=== PATIENT | female | born 2005 | race Asian ===

== ENCOUNTER 2023-01-30 10:35 | Emergency (ER) | payer BC, SELFPAY ==
[2023-01-30 10:41] VITALS: BP 126/82; PULSE 98; RESP 18; TEMP 36.4; O2SAT 99; BMI 19.7
--- NOTE | 2023-01-30 10:47 | ED.GENADULT ---
HPI - General Adult General Date Seen: 01/30/23 Chief complaint: Epistaxis/Nosebleed Stated complaint: Nose Bleed Time Seen by Provider: 01/30/23 10:45 Source: patient Mode of arrival: ambulatory Limitations: no limitations History of Present Illness HPI narrative: Stormy is a 17-year-old female with no past medical history presents emergency department via private car with a nosebleed. Patient states she has a history of nose bleeds in the past, she has had cauterization, she has been seen by ENT as well. Patient denies any bleeding disorders. She denies any trauma. She was in the shower around 8:50 a.m. this morning, bleeding was coming out of her left nostril, and down her throat. No difficulty with breathing or swallowing, no nausea vomiting. She applied pressure and came to the emergency department. Patient denies any lightheadedness or dizziness. Patient was doing well prior to this morning. Related Data Home Medications Medication Instructions Recorded Confirmed No Known Home Medications 01/30/23 02/05/23 Allergies Allergy/AdvReac Type Severity Reaction Status Date / Time amoxicillin Allergy Verified 02/05/23 09:39 Review of Systems Status of ROS: Reports: 10 or more systems reviewed and unremarkable except as noted in History and below [facility] PFS Social History Smoking Status: Never smoker Do you use any of these nicotine containing products: None Second hand tobacco smoke exposure: No service: No Exam Narrative: Exam Narrative: General: No obvious distress, nontoxic in appearance HEENT: Oropharynx clear and moist, small blood clots in the post oropharyngeal area Nose: Active bleeding of the left naris Lungs: Clear to auscultation bilaterally Heart; normal sinus rhythm S1-S2 Abdomen: Soft nontender Neuro; awake and oriented x3 Const: Vital Signs, click to edit/add: Vital Signs - 24 hr 01/30/23 10:41 Temperature 97.5 F L Pulse Rate [Right Pulse Oximeter] 98 Respiratory Rate 18 Blood Pressure [Ri ght Upper Arm] 126/82 Pulse Oximetry 99 Oxygen Delivery Me thod Room Air Course Course ED Course: 11:00 AM: AIDET performed, no concerns for airway at this time, seems more anterior epistaxis, will apply Afrin to cotton ball/2 x 2 gauze for packing, nasal clamp applied. Will also obtain CBC, INR. Reevaluation(s) Time of Reevaluation #1: 12:17 Reevaluation #1: Epistaxis has resolved, patient doing well. CBC showed stable hemoglobin and normal INR. Plan to have her follow-up with ENT here in [place] with Dr. Zazueta. Call made to Dr. Zazueta he was updated. Reasons to return given. Vital Signs Vital signs: Initial Vital Signs Temperature 97.5 F L 01/30/23 10:41 Temperature Source Temporal Artery Scan 01/30/23 10:41 Pulse Rate 98 01/30/23 10:41 Respiratory Rate 18 01/30/23 10:41 Blood Pressure 126/82 01/30/23 10:41 Blood Pressure Mean 96 01/30/23 10:41 Blood Pressure Position Sitting 01/30/23 10:41 Pulse Oximetry 99 01/30/23 10:41 Oxygen Delivery Method Room Air 01/30/23 10:41 Vital Signs Temperature 97.5 F L 01/30/23 10:41 Pulse Rate 98 01/30/23 10:41 Respiratory Rate 18 01/30/23 10:41 Blood Pressure 126/82 01/30/23 10:41 Pulse Oximetry 99 01/30/23 10:41 Oxygen Delivery Method Room Air 01/30/23 10:41 Temperature 97.5 F L 01/30/23 10:41 Pulse Rate 98 01/30/23 10:41 Respiratory Rate 18 01/30/23 10:41 Blood Pressure 126/82 01/30/23 10:41 Pulse Oximetry 99 01/30/23 10:41 Oxygen Delivery Method Room Air 01/30/23 10:41 Medical Decision Making Lab Data Labs: Lab Results 01/30/23 Range/Units 12:04 WBC 6.18 (4.50-11.00) K/uL RBC 4.00 (4.00-5.20) m/uL Hgb 12.0 (12.0-16.0) gm/dL Hct 36.6 (33.0-51.0) % MCV 92 (80-100) fL MCH 30 (26-34) pg MCHC 33 (32-36) gm/dL RDW Coeff of Hamida 12.3 (11.5-15.5) % Plt Count 214 (140-440) K/uL Neut % (Auto) 75.5 H (42.0-72.0) % Lymph % (Auto) 18.3 L (20-44) % Dupage % (Auto) 5.8 (0.0-11.0) % Eos % (Auto) 0.2 (0.0-7.0) % Baso % (Auto) 0.2 (0.0-3.0) % Neut # (Auto) 4.70 (1.7-7.0) K/uL Lymph # (Auto) 1.10 (0.90-2.90) K/uL Dupage # (Auto) 0.40 (0.00-0.90) K/UL Eos # (Auto) 0.01 (0.00-0.50) K/uL Baso # (Auto) 0.01 (0.00-0.30) K/uL Abs Immat Gran (auto) 0.00 (0.00-0.30) K/uL Imm/Tot Granulo (auto) 0.0 % INR 1.02 (0.91-1.10) Discharge Plan Discharge Clinical Impression: Epistaxis Patient Disposition: Home, Self-Care Condition: Improved Instructions: Nosebleed (ED) Additional Instructions: Please follow up with Dr. Zazueta on 02/04/23 at [facility], 2:45pm. Prescriptions: No Action No Known Home Medications Follow Up/Referrals: Provider,Not a Local [Primary Care Provider] - Stand Alone Forms: MyHealth Info Instructions Procedures Epistaxis Control Nostril: Yes left Nose prepped with: Yes other (Afrin) Direct inspection: Yes anterior source identified Direct inspection method: Yes nasal speculum Epistaxis treatment: Yes other (Afrin spray, with 2x2 gauze, nasal clamp) Results of treatment: Yes bleeding controlled Estimated blood loss (if any): none Complications: Yes none Conclusion: patient tolerated procedure
--- OUTSIDE RECORDS SUMMARY | 2023-01-30 11:59 | XMS_ITS | Continuity of Care Document ---
Author Name Unknown Organization [facility] Address [address] [phone] Phone Care Team Providers Care Inside Trucker Name Role Phone Ruth Juarez MD Unavailable Unavailable Allergies, Adverse Reactions, Alerts Substance Reaction Status Criticality No Known Allergies Active No Inform ation Medications Medication Instructions Dosage Effective Dates (start - stop) Status Comments No Drug Therapy Prescribed Procedures Procedure Date COMPREHENSIVE EXAM REFRACTION COMPREHENSIVE EXAM REFRACTION COMPREHENSIVE EXAM REFRACTION COMPREHENSIVE EXAM REFRACTION COMPREHENSIVE EXAM REFRACTION EYE EXAM, NEW PATIENT REFRACTION Advance Directives Directive Yes / No Effective Date File Name No Information Encounters Encounter Description Practice Location Reason(s) For Visit Diagnoses Date Provider Providers Copied on Encounter [facility], [address] [place], [place], [facility], tel:[phone] [place] No Information 3 Ann Miranda. [facility], [address], [place], [facility], . tel:[phone] [facility], [address] [place], [place], [facility], tel:[phone] [place] Routine vision exam (chief complaint) Myopia, bilateralAnis ometropia 7 No Information [facility] [address] [facility] [address], [place], [address]. tel:[phone] [address] [place] [address], [address] [place] [address], [address], tel:[phone] [place] routine vision exam (chief complaint) Myopia, bilateral 6 No Information Referring Provider: Mariangel Huber [facility] [address] [facility] [address], [place], [address]. tel:[phone] [place] [address], [address] [place] [address], [address], tel:[phone] [place] routine exam (chief complaint) Unspecified disorder of refraction and accommodation 5 No Information Referring Provider: Mariangel Huber [facility] [address] [facility] [address] [place] [address], [address]. tel:[phone] [place] [address], [address] [place] [address], [facility], tel:[phone] [place] Refractive Error Unspecified 4 No Information Referring Provider: Rick Robison [facility] [address] [facility] [address], [place], [address]. tel:[phone] [place] [address], [address] [place] [address], [address], tel:[phone] [place] Refractive Error UnspecifiedRe fractive Error Unspecified 3 No Information Referring Provider: Rick Robison [facility] [address], [place], [address]. tel:[phone] [place] [address], [address] [place] [address], [address], tel:[phone] [place] No Information 0 No Information Referring Provider: Rick Robison [facility] [address] [facility] [address] [address] [address]. tel:[phone] Family History Family Member Type Diagnosis Age At Onset Problem (finding) Diabetes mellitus Payers Payer name Insurance type Covered constitution party ID Authorrica mo(s) [facility] [id number] Social History Type Description Quantity Date Captured Comments Sex Female Smoking Status No Information Chief Complaint And Reason For Visit No Information Reason For Referral Reason For Referral No Information History Of Present Illness Encounter Date Complaint History Of Prese nt Illness Routine vision exam The 11 year 4 month old female presents for evaluation of Routine vision exam in the right eye and left eye. It started about 9 months ago. It affects neither distance or near vision. The condition is stable. Pt only wears glasses at school, no vision complaints. routine vision exam The 10 year 7 month old female presents for evaluation of routine vision exam in the right eye and left eye. It affects neither distance or near vision. The condition is stable with glasses. Not interested in contacts. routine exam The 9 year 2 mo nth old female presents for evaluation of routine exam in the right eye and left eye. Patient states that she wears glasses at school only, vision is much better with them on. Did not bring glasses today. Functional Status Date Functional Assessmen t No Information Medications Administered Medication Instructions Dosage Effective Dates (start - stop) Status Comments No Drug Therapy Prescribed Instructions Date Instruction Additional Infor nishant Follow up - Return i n 1 year with Chet Bush MD for Complete Exam Related to Myopia, bilateral Impression/Plan - Re fractive error -discussed diagnosis in detail with patient's father. Glasses Rx given. Call or return immediately for decreased vision, pain, redness, light sensitivity.Return in 1 year with Chet Bush MD for Complete Exam Related to Myopia, bilateral Return in Return in 1 year with Chet Bush MD for Vision Exam. Related to Myopia, bilateral Follow up - Return i n Return in 1 year with Chet Bush MD for Vision Exam. Related to Myopia, bilateral Impression/Plan - Di scussed diagnosis in detail with patient and patient's father. New glasses Rx was given today.Return in Return in 1 year with Chet Bush MD for Vision Exam. Related to Myopia, bilateral Return in 1 year wit elaina Bush MD for Complete Exam. Related to Unspecified disorder of refraction and accommodation Follow up - Return i n 1 year with Chet Bush MD for Complete Exam. Related to Unspecified disorder of refraction and accommodation Impression/Plan - Re fractive error -discussed diagnosis in detail with patient's mother. Glasses Rx given. Call or return immediately for decreased vision, pain, redness, light sensitivity.Return in 1 year with Chet Bush MD for Complete Exam Related to Unspecified disorder of refraction and accommodation - Return in 1 year w uma Bush MD for Complete Exam. Related to Myopia, astigmatism Myopia, astigmatism OU Condition: worsening.-VA sc 20/20- OU open (dilated)-BCVA 20/20 OU - Discussed diagnosis in detail with patient.Glasses are optional at this time, Mrx given. Return in 1 year with Chet Bush MD for Complete Exam. Educational materials provided. Related to Myopia, astigmatism - Return in 1 year w uma Bush MD for Complete Exam. Related to Myopia, astigmatism Myopia, astigmatism OU Condition: worsening. - - Discussed diagnosis in detail with patient and mother.- New glasses Rx was given today, optional.Return in 1 year with Chet Bush MD for Complete Exam. Educational materials provided. Related to Myopia, astigmatism Assessments Type Assessment Date No Information Patient Care Teams Name Effective Dates (start - stop) Status Members No Information
--- OUTSIDE RECORDS SUMMARY | 2023-01-30 11:59 | XMS_ITS | Continuity of Care Document ---
Author Name Unknown Organization [facility] Address [address] [phone] Phone Care Team Providers Care Pharmacist In Charge Owner Name Role Phone Ruth Juarez MD Unavailable [...] Diagnoses Date Provider Providers Copied on Encounter [facility], [address] [place], [place], [facility], tel:[phone] [place] No Information 3 Ann Miranda. [facility], [address], [place], [facility], . tel:[phone] [facility], [address] [place], [place], [facility], tel:[phone] [place] Routine vision exam (chief complaint) Myopia, bilateralAnis ometropia 7 No Information Referring [facility]: [facility] [address] [facility] [address], [place], [address]. tel:[phone] [address] [place] [address], [address] [place] [address], [address], tel:[phone] [place] routine vision exam (chief complaint) Myopia, bilateral 6 No Information Referring Provider: Mariangel Huber [facility] [address] [facility] [address], [place], [address]. tel:[phone] [address] [place] [address], [address] [place] [address], [address], tel:[phone] [place] routine exam (chief complaint) Unspecified disorder of refraction and accommodation 5 No Information Referring Provider: Mariangel Huber [facility] [address] [facility] [address] [place] [address], [address]. tel:[phone] [phone] [place] [address], [address] [place] [address], [facility], tel:[phone] [place] Refractive Error Unspecified 4 No Information Referring Provider: Rick Robison [facility] [address] [facility] [address], [place], [address]. tel:[phone] [address] [place] [address], [address] [place] [address], [address], tel:[phone] [place] Refractive Error UnspecifiedRe fractive Error Unspecified 3 No Information Referring Provider: Rick Robison [facility] [address] [facility] [address], [place], [address]. tel:[phone] [place] [address], [address] [place] [address], [address], tel:[phone] [place] No Information 0 No Information Referring Provider: Rick Robison [facility] [address] [facility] [address] [address]. tel:[phone] Family History Family Member Type Diagnosis Age At Onset Problem (finding) Diabetes mellitus Payers Payer name Insurance type Covered republican ID Authorrica mo(s) [facility] [id number] Social History Type Description Quantity Date Captured [...]
[2023-01-30 12:14] LABS: Basophils Absolute Auto 0.01 K/uL (0.00-0.30); Basophils Percent Auto 0.2 % (0.0-3.0); Eosinophils Absolute Auto 0.01 K/uL (0.00-0.50); Eosinophils Percent Auto 0.2 % (0.0-7.0); Hematocrit 36.6 % (33.0-51.0); Lymphocytes Percent Auto 18.3 % (20-44); Mean Corpuscular HGB Conc 33 gm/dL (32-36); Mean Corpuscular Hemoglobin 30 pg (26-34); Mean Corpuscular Volume 92 fL (80-100); Monocytes Percent Auto 5.8 % (0.0-11.0); Neutrophils Percent Auto 75.5 % (42.0-72.0); Platelet Count* 214 K/uL (140-440); RDW Coefficient of Variation % 12.3 % (11.5-15.5); White Blood Count* 6.18 K/uL (4.50-11.00)
[2023-01-30 12:17] LABS: Slide Review Reflex No
[2023-01-30 12:31] LABS: INR 1.02 (0.91-1.10)
== END 2023-01-30 13:06 | disposition home or self-care (01) ==
PROVIDERS: Emergency Provider Student in an Organized Health Care Education/Training Program
DX: R04.0 Epistaxis (principal)
CPT/HCPCS: 36415; 85025; 85610; 99283; 99284

== ENCOUNTER 2023-02-13 14:32 | Outpatient (CLI) | payer BC, SELFPAY ==
--- OUTSIDE RECORDS SUMMARY | 2023-02-14 05:12 | XMS_ITS | Continuity of Care Document ---
Author Name Unknown Organization [facility] Address [address] [phone] Phone Care Team Providers Care Grid Casting Machine Operator Helper Name Role Phone Ruth Juarez MD Unavailable [...] Diagnoses Date Provider Providers Copied on Encounter [facility], [address] [place], [place], [facility], tel:[phone] [place] No Information 3 Ann Miranda. [facility], [address] [place], [place], [facility], . tel:[phone] [facility], [address] [place], [place], [facility], tel:[phone] [place] Routine vision exam (chief complaint) Myopia, bilateralAnis ometropia 7 No Information Referring [facility] [address] [facility] [address], [place], [address]. tel:[phone] [facility], [address] [place] [address], [address], tel:[phone] [place] routine vision exam (chief complaint) Myopia, bilateral 6 No Information Referring Provider: Mariangel Huber [facility] [address] [facility], [place], [address]. tel:[phone] [facility], [address] [place] [address], [facility], tel:[phone] [place] routine exam (chief complaint) Unspecified disorder of refraction and accommodation 5 No Information Referring Provider: Mariangel Huber [facility] [address] [facility] [address] [address] [address]. tel:[phone] [place] [address], [address] [place] [address], [facility], tel:[phone] [place] vision without complaints (chief complaint) Refractive Error Unspecified 4 No Information Referring Provider: Rick Robison [facility] [address] [facility] [address] [place] [address], [address]. tel:[phone] [facility], [address] [place] [address], [facility], tel:[phone] [place] blurry vision (chief complaint) Refractive Error UnspecifiedRe fractive Error Unspecified 3 No Information Referring Provider: Rick Robison [facility] [address] [facility] [address], [place], [address]. tel:[phone] [facility], [address] [place] [address], [facility], tel:[phone] [place] No Information 0 No Information Referring Provider: Rick Robison [facility] [address] [facility] [address] [address]. tel:[phone] Family History Family Member Type Diagnosis Age At Onset Problem (finding) Diabetes mellitus Payers Payer name Insurance type Covered alliance party ID Authoriza tion(s) [facility] CI [id number] Social History Type Description Quantity Date Captured [...]
== END 2023-02-13 14:33 | disposition home or self-care (01) ==
LOC: NFLDREF 02-14 05:08
PROVIDERS: Visit Provider Otolaryngology
DX: R04.0 Epistaxis (principal)
CPT/HCPCS: 85730